=== PATIENT | female | born 1965 | race American Indian/Alaskan Native ===

== ENCOUNTER 2017-06-24 16:07 | Emergency (ER) | payer SELFPAY ==
[2017-06-24 17:36] VITALS: BP 162/115; PULSE 65; RESP 19; TEMP 98.3
--- NOTE | 2017-06-24 17:36 | C.PDOC ---
History Of Present Illness 52 year old female presents to the ED requesting heroin detox. Patient states she last used 2 bags at 1100 today. Patient denies alcohol or any other substance abuse. She has no other complaints at this time. Time Seen by Provider: 06/24/17 17:23 Chief Complaint (Nursing): Substance Abuse History Per: Patient History/Exam Limitations: no limitations Onset/Duration Of Symptoms: Hrs Current Symptoms Are (Timing): Still Present Suicide/Self Injury Attempted (Context): None Modifying Factor(s): Narcotics (heroin) Associated Symptoms: denies: Suicidal Thoughts, Suicidal Plan Involuntary Hold By: None Recent travel outside of the [place]: No Additional History Per: Patient Past Medical History Reviewed: Historical Data, Nursing Documentation, Vital Signs Vital Signs: Last Vital Signs Temp 98.3 F 06/24/17 17:25 Pulse 65 06/24/17 17:25 Resp 19 06/24/17 17:25 BP 162/115 H 06/24/17 17:25 Pulse Ox 98 06/24/17 17:58 - Medical History PMH: Asthma, HTN Surgical History: No Surg Hx Family History: States: Unknown Family Hx - Social History Hx Alcohol Use: No Hx Substance Use: Yes - Immunization History Hx Tetanus Toxoid Vaccination: No Hx Influenza Vaccination: No Hx Pneumococcal Vaccination: No Review Of Systems Psych: Positive for: Other (heroin detox ) Physical Exam - Physical Exam Appears: Non-toxic, No Acute Distress Skin: Normal Color, Warm, Dry Head: Atraumatic, Normacephalic Eye(s): bilateral: Normal Inspection Oral Mucosa: Moist Neck: Supple Chest: Symmetrical, No Deformity, No Tenderness Cardiovascular: Rhythm Regular, No Murmur Respiratory: Normal Breath Sounds, No Rales, No Rhonchi, No Wheezing Extremity: Normal ROM, Capillary Refill (less than 2 seconds ) Neurological/Psych: Oriented x3, Normal Speech, Normal Cognition ED Course And Treatment O2 Sat by Pulse Oximetry: 98 (on RA) Pulse Ox Interpretation: Normal Medical Decision Making Medical Decision Making: Progress: Patient is informed about the unavailability of detox beds at this time. Advised to call to inquire about detox beds and/or return to the ED if symptoms persist or worsen. Disposition - Disposition Referrals: [facility] [Outside] [facility] [Outside] Disposition: HOME/ ROUTINE Disposition Time: 17:25 Condition: STABLE Additional Instructions: please call for detox beds. return to er with worsening symptoms or concerns. Instructions: Drug Abuse and Drug Addiction (DC) Forms: [facility] (Chilean) - Clinical Impression Clinical Impression: Drug abuse - Scribe Statement The provider has reviewed the documentation as recorded by the Scribe (Christine Burrows) Provider Attestation: All medical record entries made by the Scribe were at my direction and personally dictated by me. I have reviewed the chart and agree that the record accurately reflects my personal performance of the history, physical exam, medical decision making, and the department course for this patient. I have also personally directed, reviewed, and agree with the discharge instructions and disposition.
[2017-06-24 17:37] VITALS: O2SAT 98
== END 2017-06-24 17:40 | disposition home or self-care (01) ==
LOC: C.ER 16:07
DX: F11.10 Opioid abuse, uncomplicated (principal)

== ENCOUNTER 2017-07-01 11:05 | Inpatient (IN) | payer MEDICAID, OTHER ==
[2017-07-01 13:04] LABS: BASO # 0.1 K/uL (0.0-0.2); HEMOGLOBIN 12.3 g/dL (11.0-16.0); MEAN CORPUSCULAR HEMOGLOBIN 27.3 pg (27.0-31.0); NEUT # 2.8 K/uL (1.8-7.0); WHITE BLOOD COUNT 5.6 K/uL (4.8-10.8)
[2017-07-01 13:11] LABS: BASO % 1.8 % (0.0-2.0); EOS # 0.1 K/uL (0.0-0.7); EOS % 2.6 % (0.0-4.0); LYMPH # 1.9 K/uL (1.0-4.3); LYMPH % 34.5 % (20.0-40.0); MEAN CELL VOLUME 81.3 fL (81.0-99.0); MEAN CORPUSCULAR HGB CONC 33.6 g/dL (33.0-37.0); MEAN PLATELET VOLUME 8.5 fL (7.2-11.7); MONO # 0.6 K/uL (0.0-0.8); MONO % 10.1 % (0.0-10.0); NRBC % 0.3 % (0.0-2.0); RBC 4.5 Mil/uL (3.80-5.20); RED CELL DISTRIBUTION WIDTH 17.8 % (11.5-14.5)
[2017-07-01 13:13] LABS: ALB/GLOB RATIO 0.9 (1.0-2.1); ALBUMIN 3.8 g/dL (3.5-5.0); ALT/SGPT 9 U/L (9-52); AST/SGOT 26 U/L (14-36); BLOOD UREA NITROGEN 15 mg/dL (7-17); CALCIUM 8.8 mg/dl (8.6-10.4); GFR AFRICAN-AMERICAN > 60; GFR NON-AFRICAN AMERICAN 59
--- NOTE | 2017-07-01 13:54 | C.PDOC ---
History Of Present Illness 52 year old female presents to the ED requesting heroin detox. Patient admits to intranasal heroin use and states her last use was this morning. Patient denies suicidal/homicidal ideation, hallucinations, and has no other complaints at this time. Time Seen by Provider: 07/01/17 11:31 Chief Complaint (Nursing): Substance Abuse History Per: Patient History/Exam Limitations: no limitations Onset/Duration Of Symptoms: Hrs Current Symptoms Are (Timing): Still Present Suicide/Self Injury Attempted (Context): None Modifying Factor(s): Narcotics (heroin) Associated Symptoms: denies: Suicidal Thoughts, Suicidal Plan Involuntary Hold By: None Recent travel outside of the [place]: No Additional History Per: Patient Past Medical History Reviewed: Historical Data, Nursing Documentation, Vital Signs Vital Signs: Last Vital Signs Temp 97.8 F 07/02/17 06:55 Pulse 71 07/02/17 06:55 Resp 18 07/02/17 06:55 BP 163/112 H 07/02/17 06:55 Pulse Ox 98 07/02/17 06:55 - Medical History PMH: Asthma, HTN Denies: Diabetes, Hepatitis, HIV, Seizures, Sexually Transmitted Disease Surgical History: No Surg Hx Family History: States: Unknown Family Hx - Social History Hx Alcohol Use: No Hx Substance Use: Yes - Immunization History Hx Tetanus Toxoid Vaccination: No Hx Influenza Vaccination: No Hx Pneumococcal Vaccination: No Review Of Systems Psych: Positive for: Other (substance abuse ). Negative for: Suicidal ideation Physical Exam - Physical Exam Appears: Non-toxic, No Acute Distress Skin: Normal Color, Warm, Dry Head: Atraumatic, Normacephalic Eye(s): bilateral: Normal Inspection Oral Mucosa: Moist Neck: Supple Chest: Symmetrical, No Deformity, No Tenderness Cardiovascular: Rhythm Regular, No Murmur Respiratory: Normal Breath Sounds, No Rales, No Rhonchi, No Wheezing Extremity: Normal ROM, Capillary Refill (less than 2 seconds ) Neurological/Psych: Oriented x3, Normal Speech, Normal Cognition Gait: Steady ED Course And Treatment - Laboratory Results Result Diagrams: 07/01/17 12:54 07/01/17 12:54 O2 Sat by Pulse Oximetry: 97 (on RA) Pulse Ox Interpretation: Normal Medical Decision Making Medical Decision Making: Assessment: substance abuse Progress: Bloodwork and UA ordered and reviewed. Patient was admitted for detox under Dr. Andino's service for opiate abuse. Disposition Discussed With : Idalmis Andino Doctor Will See Patient In The: Hospital Counseled Patient/Family Regarding: Studies Performed, Diagnosis - Disposition Disposition: HOSPITALIZED Disposition Time: 15:24 Condition: FAIR - Clinical Impression Clinical Impression: Drug abuse - Scribe Statement The provider has reviewed the documentation as recorded by the Scribe (Christine Burrows) Provider Attestation: All medical record entries made by the Scribe were at my direction and personally dictated by me. I have reviewed the chart and agree that the record accurately reflects my personal performance of the history, physical exam, medical decision making, and the department course for this patient. I have also personally directed, reviewed, and agree with the discharge instructions and disposition.
[2017-07-01 14:21] LABS: SQUAMOUS EPITHIAL 5 /hpf (0-5); URINE BILIRUBIN NEGATIVE (NEGATIVE); URINE CLARITY Hazy (Clear); URINE COLOR Yellow (YELLOW); URINE GLUCOSE (UA) NORMAL (Normal); URINE LEUKOCYTE ESTERASE NEG Leu/uL (Negative); URINE PROTEIN NEGATIVE (NEGATIVE); URINE UROBILINOGEN NORMAL mg/dL (0.2-1.0)
[2017-07-01 14:38] LABS: URINE BLOOD 2+ (NEGATIVE)
[2017-07-01 14:50] LABS: BARBITURATES, UR NEGATIVE (NEGATIVE); BENZODIAZEPINES, UR NEGATIVE (NEGATIVE); PHENCYCLIDINE, UR NEGATIVE (NEGATIVE)
[2017-07-01 14:56] LABS: OPIATES, UR POSITIVE (NEGATIVE)
--- NOTE | 2017-07-01 15:58 | PCM.BM ---
<Emmett Vieira - Last Filed: 07/01/17 15:56> Treatment Plan Problems - Problems identified on initial assessmt potential for poiate withdrawal Date Initiated: 07/01/17 Time Initiated: 15:56 Assessment reference: NA Status: Active Treatment assets and liabiliti Patient Assests: cooperative, ADL independent, cognitively intact Patient Liabilities: substance abuse - Milieu Protocol Maintain good personal hygiene: daily Encourage regular showers, daily Remind patient to perform daily oral care, daily Assist patient to perform ADL's Conduct patient checks and document Observation sheet: Q15 minutes Maintain personal safety: daily Educate patient to report safety concerns to staff, every shift Monitor environment for contraband/sharps Medication safety: Monitor for expected outcome, potential side effects: daily, Assess barriers to learning: daily, Assess readiness for medication education: daily <Jackie Zavala - Last Filed: 07/02/17 13:25> Family Contact Family involvement: Family/SO is involved - Goals for Treatment Patient goals for treatment: COMPLETE DETOX AND TRANSITION TO MMT. Discharge/Continuing Care - Education Needs Education Needs: Patient Medication, Patient Diagnosis/Disease Process, Patient Coping Skills, Patient Anger Management skills, Patient Placement options, Patient Community resources - Discharge Discharge Criteria: No longer exhibiting s/s of withdrawal, Reduction of target symptoms Discharge to:: Home - Treatment Team Participation Patient/Family/SO Statement: 07/02/17 13:27 "I WANNA GO ON A METHADONE CLINIC AFTER THIS..." Discussed with Family/SO: No Was Patient/Family/SO present at Treatment Team Meeting: Yes <Idalmis Andino - Last Filed: 07/03/17 01:25> - Diagnosis (1) Opioid use disorder, severe, dependence Status: Acute Interventions: 07/03/17 01:25 * Assess 7x/week regarding severity of withdrawal * Educate regarding risks, benefits, side effects and alternatives of medications * Use Motivational Interviewing for abstinence * Use CBT for relapse prevention * Medication management for withdrawal symptoms * Encourage medication assisted treatment *
[2017-07-01] MEDS ORDERED: Aluminum Hydroxide/Magnesium Hydroxide Susp (30 mL) PO PRN (18:39)
--- NOTE | 2017-07-02 14:14 | PCM.PSYCH ---
Initial Psychiatric Evaluation - Initial Psychiatric Evaluation Type of Admission: Voluntary Legal Status: Capacity Chief Complaint (in patient's own words): "I need help." History of Present Illness and Precipitating Events: Patient is seen, chart reviewed, case discussed. This is a 52 year old AA female, who is unemployed and lives with sister, who presented to ED for opiod use detox. Patient was referred to the program by her friend. Patient states she wants to quit because "I want to see my grandkids grow up." Patient snorts 7 bags of heroin per day. Patient has been using since she was 18 years old. Patient stated she was in treatment once at [facility] and [facility] but then relapsed. Patient states she has a history of alcohol use but quit drinking last year. Patient admits to smoking 2 cigarettes per day. Patient denies other illicit drug use, including painkillers, xanax, and marijuana. medical hx: denies psych hx: denies Family Hx: denies Current Medications: Active Medications Generic Name Dose Route Start Last Admin Trade Name Freq PRN Reason Stop Dose Admin Acetaminophen 650 mg 07/01/17 18:39 Tylenol 325mg Tab PO Q4H PRN Fever greater than 101 F Al Hydrox/Mg Hydrox/Simethicone 30 ml 07/01/17 18:39 Maalox 30 Ml PO TID PRN Indigestion / Heartburn Clonidine HCl 0.1 mg 07/01/17 18:39 07/02/17 06:31 Catapres PO 0.1 mg Q8 PRN Administration COWS Score More or Equal to 5 Loperamide HCl 2 mg 07/01/17 18:39 Imodium PO Q8 PRN Diarrhea Methadone HCl 15 mg 07/02/17 10:00 07/02/17 09:30 Methadone PO 07/06/17 09:59 15 mg Q24H CAROLE Administration Taper Ondansetron HCl 4 mg 07/01/17 18:39 Zofran Tab PO Q8 PRN Nausea/Vomiting Pneumococcal Polyvalent Vaccine 0.5 ml 07/04/17 10:00 Pneumovax 23 Vaccine IM 07/04/17 10:01 .ONCE ONE Pseudoephedrine HCl 60 mg 07/01/17 18:39 Sudafed Tab PO QID PRN Nasal/Sinus Congestion Past Psychiatric History - Past Psychiatric History Previous Treatment History: None History of ETOH/Drug Use: Opiod Use Disorder Pertinent Medical Hx (Current Medical&Sleep Prob, Allergies): Allergies Allergy/AdvReac Type Severity Reaction Status Date / Time Penicillins Allergy SWELLING Verified 07/01/17 11:16 Unobtainable 06/24/17 Review of Systems - Review of Systems All systems: reviewed and no additional remarkable complaints except - Psychiatric Psychiatric: absent: Depression, Hallucinations, Homicidal Ideation, Suicidal Ideation Mental Status Examination - Personal Presentation Personal Presentation: Looks older than stated age - Affect Affect: Broad - Motor Activity Motor Activity: Calm - Reliability in Providing Information Reliability in Providing Information: Fair - Speech Speech: Organized - Mood Mood: Neutral - Formal Thought Process Formal Thought Process: No Impairment - Obsessions/Compulsions Obsessions: No Compulsions: No - Cognitive Functions Orientation: Person, Place, Situation, Time Sensorium: Alert - Risk Risk: Withdrawal - Strength & Assets Inventory Strength & Assets Inventory: Family support DSM 5 DX - DSM 5 DSM 5 Diagnosis: Opiod Use Disorder, severe Opiod Withdrawal - Recommended/Plan of Treatment Treatment Recommendations and Plan of Treatment: Methadone detox Gabapentin for augmentation if needed As needed medications All risks, benefits and alternatives of the meds discussed, and the pt agreed and understood. Attend groups and activities Supportive therapy and psychoeducation CT for abstinence CBT for relapse prevention Encourage MAT Refer to rehab or IOP, and self-help groups Smoking cessation with CT Nicotine patch if needed 34 min Projected ELOS: 4-5 days - Smoking Cessation Smoking Cessation Initiated: Yes
--- NOTE | 2017-07-03 10:25 | PCM.PYCHPN ---
Psychiatric Progress Note - Psychiatric Progress Note Patient seen today, length of contact: 15 min Patient Chief Complaint: I am still withdrawing. Problems Identified/Issues Discussed: The pt is seen, chart reviewed, case discussed with staff. Patient states she is eating well. She states she is still having some trouble sleeping. Support given, CBT and HI used briefly No new symptoms reported, improving slowly and needs more time No SEs from medications, risks discussed. After care discussed Medication Change: Yes Medical Record Reviewed: Yes Mental Status Examination - Cognitive Function Orientation: Person, Place, Situation, Time Memory: Intact Attention: WNL Concentration: WNL Association: WNL Fund of Knowledge: WNL - Mood Mood: Neutral - Affect Affect: Broad - Speech Speech: Soft - Formal Thought Process Formal Thought Process: No Impairment - Suicidal Ideation Suicidal Ideation: No - Homicidal Ideation Homicidal Ideation: No Goal/Treatment Plan - Goal/Treatment Plan Need for Continued Stay: Severe depression anxiety, Severe functional impairment Progress Toward Problem(s) and Goals/Treatment Plan: Opioid Use Disorder, severe Opioid Withdrawal Methadone detox Gabapentin for augmentation if needed As needed medications All risks, benefits and alternatives of the meds discussed, and the pt agreed and understood. Attend groups and activities Supportive therapy and psychoeducation HI for abstinence CBT for relapse prevention Encourage MAT Refer to rehab or IOP, and self-help groups Smoking cessation with HI Nicotine patch if needed
[2017-07-04 09:43] VITALS: RESP 20; TEMP 97.4; O2SAT 98
[2017-07-04] MEDS ORDERED: Pneumococcal 23-Valent Vaccine IM ONE (10:00)
--- NOTE | 2017-07-04 10:19 | PCM.PYCHDC ---
Mental Status Examination - Mental Status Examination Orientation: Person, Place, Situation, Time Memory: Intact Mood: Anxious Affect: Constricted Speech: Appropriate Attention: WNL Concentration: Poor Association: WNL Fund of Knowledge: WNL Formal Thought Process: No Impairment Suicidal Ideation: No Current Homicidal Ideation?: No Discharge Summary - Discharge Note Reason for Hospitalization: Opioid detox Consultations:: List each consultation separately and include: 1. Reason for request. 2. Findings. 3. Follow-up Summary of Hospital Course include:: 1. Description of specific treatment plan utilized for patients during their course of treatmen. 2. Summarize the time- course for resolution of acute symptoms and/or regressed behaviors. 3. Describe issues identified and worked on during hospitalization. 4. Describe medication utilized. 5. Describe medical problems identified and treated. 6. Reassessment of suicide risk Summary of Hospital Course: Patient is seen, chart reviewed, case discussed. On admission: This is a 52 year old AA female, who is unemployed and lives with sister, who presented to ED for opiod use detox. Patient was referred to the program by her friend. Patient states she wants to quit because "I want to see my grand kids grow up." Patient snorts 7 bags of heroin per day. Patient has been using since she was 18 years old. Patient stated she was in treatment once at [facility] and [facility] but then relapsed. Patient states she has a history of alcohol use but quit drinking last year. Patient admits to smoking 2 cigarettes per day. Patient denies other illicit drug use, including painkillers, xanax, and marijuana. medical hx: denies psych hx: denies Family Hx: denies Hospital course: The pt was admitted and started on treatment with psychotherapy, support, psychoeducation and medications. LA and CBT used. The pt attended groups and activities, as well as milieu therapy. All the risks and benefits of medications are discussed and the patient understood and agreed. The pt improved with the treatments provided. After care discussed with the patient. [facility] Methadone program - Diagnosis (1) Opioid use disorder, severe, dependence Status: Acute - Final Diagnosis (DSM 5) Condition upon Discharge: IMPROVED Disposition: HOME/ ROUTINE Follow-up Treatment Plan: No meds - did not want Follow after care plan as discussed. Use relapse prevention skills Return to ER or call 911 if suicidal, homicidal or symptoms relapse. Stay away from stress, alcohol and drugs. See primary doctor regularly and get labs.
[2017-07-04 11:29] VITALS: BP 131/83; PULSE 71
== END 2017-07-04 12:36 | disposition home or self-care (01) | DRG 895 ==
LOC: C.ER 11:05 → C.7D 15:23
PROVIDERS: ADMIT Psychiatry & Neurology Psychiatry; ATTEND Psychiatry & Neurology Psychiatry
PROC: HZ2ZZZZ Detoxification Services for Substance Abuse Treatment (ICD-10-PCS; principal; 2017-07-01)
PROC: HZ52ZZZ Individual Psychotherapy for Substance Abuse Treatment, Cognitive-Behavioral (ICD-10-PCS; 2017-07-01)
PROC: HZ59ZZZ Individual Psychotherapy for Substance Abuse Treatment, Supportive (ICD-10-PCS; 2017-07-01)
PROC: HZ56ZZZ Individual Psychotherapy for Substance Abuse Treatment, Psychoeducation (ICD-10-PCS; 2017-07-01)
PROC: HZ42ZZZ Group Counseling for Substance Abuse Treatment, Cognitive-Behavioral (ICD-10-PCS; 2017-07-01)
PROC: HZ46ZZZ Group Counseling for Substance Abuse Treatment, Psychoeducation (ICD-10-PCS; 2017-07-01)
DX: F11.23 Opioid dependence with withdrawal (principal); F17.210 Nicotine dependence, cigarettes, uncomplicated

== ENCOUNTER 2017-10-30 11:30 | Emergency (ER) | payer MEDICAID, OTHER ==
[2017-10-30 11:58] VITALS: PULSE 70; TEMP 98.4; O2SAT 95
[2017-10-30 12:18] LABS: BASO % 1.2 % (0.0-2.0); EOS # 0.2 K/uL (0.0-0.7); EOS % 4.3 % (0.0-4.0); HEMOGLOBIN 12.2 g/dL (11.0-16.0); LYMPH # 1.2 K/uL (1.0-4.3); LYMPH % 29.4 % (20.0-40.0); MEAN CELL VOLUME 82.4 fL (81.0-99.0); MEAN CORPUSCULAR HGB CONC 33.9 g/dL (33.0-37.0); MEAN PLATELET VOLUME 7.9 fL (7.2-11.7); MONO # 0.4 K/uL (0.0-0.8); MONO % 10.3 % (0.0-10.0); NEUT # 2.2 K/uL (1.8-7.0); NEUT % 54.8 % (50.0-75.0); RBC 4.37 Mil/uL (3.80-5.20); WHITE BLOOD COUNT 4.1 K/uL (4.8-10.8)
[2017-10-30 12:32] LABS: ALB/GLOB RATIO 1.1 (1.0-2.1); ALBUMIN 4.3 g/dL (3.5-5.0); CALCIUM 9.7 mg/dl (8.6-10.4); GFR AFRICAN-AMERICAN > 60; GFR NON-AFRICAN AMERICAN > 60
[2017-10-30 12:33] LABS: ALT/SGPT 58 U/L (9-52); AST/SGOT 47 U/L (14-36); BLOOD UREA NITROGEN 20 mg/dL (7-17)
--- NOTE | 2017-10-30 13:06 | RAD ---
Date of service: 10/30/2017 PROCEDURE: CHEST RADIOGRAPH, 1 VIEW HISTORY: Fall COMPARISON: None available. FINDINGS: LUNGS: The lungs are well inflated and clear. PLEURA: No pneumothorax or pleural fluid seen. CARDIOVASCULAR: Normal. OSSEOUS STRUCTURES: No significant abnormalities. VISUALIZED UPPER ABDOMEN: Normal. OTHER FINDINGS: None. IMPRESSION: No acute findings.
[2017-10-30 13:10] LABS: URINE AMORPHOUS SEDIMENT FEW /ul (<OCC); URINE BILIRUBIN NEGATIVE (NEGATIVE); URINE BLOOD NEGATIVE (NEGATIVE); URINE CLARITY Hazy (Clear); URINE COLOR Yellow (YELLOW); URINE GLUCOSE (UA) NORMAL (Normal); URINE LEUKOCYTE ESTERASE NEG Leu/uL (Negative); URINE PROTEIN NEGATIVE (NEGATIVE); URINE UROBILINOGEN NORMAL mg/dL (0.2-1.0)
--- NOTE | 2017-10-30 13:17 | CT ---
Date of service: 10/30/2017 PROCEDURE: CT HEAD WITHOUT CONTRAST. HISTORY: fall from bed at [place] COMPARISON: None available. TECHNIQUE: Axial computed tomography images were obtained through the head/brain without intravenous contrast. Radiation dose: Total exam DLP = 758.37 mGy-cm. This CT exam was performed using one or more of the following dose reduction techniques: Automated exposure control, adjustment of the mA and/or kV according to patient size, and/or use of iterative reconstruction technique. FINDINGS: HEMORRHAGE: No intracranial hemorrhage. BRAIN: There are old lacunar infarctions in the right very frontal white matter, bilateral basal ganglia and posterior limb of the left internal capsule. There are mild chronic microangiopathic changes. There is no mass, mass effect or abnormal extra-axial fluid collection. VENTRICLES: There is mild age-related global parenchymal volume loss and proportionate enlargement of the ventricles and cortical sulci. CALVARIUM: The skull base and calvarium are normal no calvarial fracture. No extracranial soft tissue swelling. PARANASAL SINUSES: Predominantly clear. MASTOID AIR CELLS: Predominantly clear. OTHER FINDINGS: None. IMPRESSION: No acute intracranial abnormality. Old lacunar infarctions as described above. Mild chronic microangiopathic changes and mild age-related global parenchymal volume loss.
--- NOTE | 2017-10-30 13:42 | C.PDOC ---
History Of Present Illness 52yo female, sent to [facility] for evaluation as she has fallen down 3 times since 10/17. Patient is currently in [facility] for treatment as she had a CVA and currently has right hemiparesis. Patient is non-verbal so a full HPI and ROS is limited. She is able to point to her left hip and is complaining of pain other. Otherwise, she offers no additional medical complaints. - HPI Time Seen by Provider: 10/30/17 11:56 Chief Complaint (Nursing): Trauma History Per: Patient History/Exam Limitations: clinical condition (nonverbal) Onset/Duration Of Symptoms: Days Location Of Injury: Left: Hip Additional History Per: Patient Past Medical History Reviewed: Historical Data, Nursing Documentation, Vital Signs Vital Signs: Last Vital Signs Temp 98.4 F 10/30/17 11:39 Pulse 70 10/30/17 13:50 Resp 19 10/30/17 13:50 BP 101/72 10/30/17 13:50 Pulse Ox 95 10/30/17 18:14 - Medical History PMH: Asthma, CVA (w/ right sided hemiparesis), HTN Denies: Diabetes, Hepatitis, HIV, Seizures, Sexually Transmitted Disease Surgical History: No Surg Hx - [facility] DETOXIFICATION SERVICES FOR SUBSTANCE ABUSE TREATMENT (07/01/17) GROUP SOLUTIONS ARCHITECT FOR SUBSTANCE ABUSE TREATMENT, PSYCHOEDUCATION (07/01/17) GROUP SOLUTIONS ARCHITECT FOR SUBSTANCE ABUSE, COGNITIVE BEHAVIORAL (07/01/17) INDIV PSYCHOTHERAPY FOR SUBSTANCE ABUSE TREATMENT, SUPPORT (07/01/17) INDIV PSYCHOTHERAPY FOR SUBSTANCE ABUSE, COGNITIV BEHAVIORAL (07/01/17) INDIV PSYCHOTHERAPY FOR SUBSTANCE ABUSE, PSYCHOEDUCATION (07/01/17) Family History: States: No Known Family Hx, Unknown Family Hx - Social History Hx Alcohol Use: No Hx Substance Use: Yes - Immunization History Hx Tetanus Toxoid Vaccination: No Hx Influenza Vaccination: No Hx Pneumococcal Vaccination: No Review Of Systems Review Of Systems: ROS cannot be obtained secondary to pt's inabilty to answer questions. (patient is non-verbal) Musculoskeletal: Positive for: Other (left hip pain s/p fall) Physical Exam - Physical Exam Appears: Non-toxic, No Acute Distress, Other (feeding tube in place) Skin: Normal Color, Warm, Dry, No Rash, Other (no lesions) Head: Atraumatic, Normacephalic Eye(s): bilateral: Normal Inspection, PERRL, EOMI Oral Mucosa: Moist Neck: Normal ROM, Supple Chest: Symmetrical, No Tenderness, No Ecchymosis Cardiovascular: Rhythm Regular Respiratory: Normal Breath Sounds Gastrointestinal/Abdominal: Soft, No Tenderness, No Mass, No Guarding, No Rebound Back: Normal Inspection, No CVA Tenderness, No Vertebral Tenderness, No Paraspinal Tenderness Extremity: Normal ROM (normal ROM of left upper and lower extremities. Unable to assess right upper and lower extremities due to hemiparesis.), No Pedal Edema , No Calf Tenderness, Capillary Refill (< 2 seconds), No Swelling Extremity: Right: Hips Non-Tender Pulses: Left Dorsalis Pedis: Normal, Right Dorsalis Pedis: Normal Neurological/Psych: No Normal Motor, No Normal Sensation ED Course And Treatment - Laboratory Results Result Diagrams: 10/30/17 12:15 10/30/17 12:15 O2 Sat by Pulse Oximetry: 95 (RA) Pulse Ox Interpretation: Normal - Other Rad CXR X-Ray: Read By Radiologist Interpretation: FINDINGS: LUNGS: The lungs are well inflated and clear. PLEURA: No pneumothorax or pleural fluid seen. CARDIOVASCULAR: Normal. OSSEOUS STRUCTURES: No significant abnormalities. VISUALIZED UPPER ABDOMEN: Normal. OTHER FINDINGS: None. IMPRESSION: No acute findings. XR Hips X-Ray: Read By Radiologist Interpretation: FINDINGS: BONES: The pelvic ring is intact. There is no acute fracture or bone destruction. Bone alignment and mineralization are normal. JOINTS: The right hip joint space is preserved. There is mild degenerative osteoarthrosis in the left hip joint. SOFT TISSUES: Normal. OTHER FINDINGS: There is large amount of stool in the visualized colon and rectum consistent with constipation. IMPRESSION: No acute displaced fracture or dislocation. - CT Scan/US CT Head Other Rad Studies (CT/US): Radiology Report Reviewed CT/US Interpretation: FINDINGS: HEMORRHAGE: No intracranial hemorrhage. BRAIN : There are old lacunar infarctions in the right very frontal white matter, bilateral basal ganglia and posterior limb of the left internal capsule. There are mild chronic microangiopathic changes. There is no mass, mass effect or abnormal extra-axial fluid collection. VENTRICLES: There is mild age-related global parenchymal volume loss and proportionate enlargement of the ventricles and cortical sulci. CALVARIUM: The skull base and calvarium are normal no calvarial fracture. No extracranial soft tissue swelling. PARANASAL SINUSES: Predominantly clear. MASTOID AIR CELLS: Predominantly clear. OTHER FINDINGS: None. IMPRESSION: No acute intracranial abnormality. Old lacunar infarctions as described above. Mild chronic microangiopathic changes and mild age-related global parenchymal volume loss. CT C-Spine Other Rad Studies (CT/US): Radiology Report Reviewed CT/US Interpretation: FINDINGS: VERTEBRAE: There is normal alignment of the cervical vertebral bodies. There is reversal of normal cervical lordosis. There is no acute fracture or traumatic anterior listhesis. The craniocervical junction is normal. The atlantoaxial joint is normal. DISCS/SPINAL CANAL/ NEURAL FORAMINA: There is mild multilevel degenerative disc disease due to combination of disc osteophyte complexes, uncovertebral joint hypertrophy and multilevel facet arthropathy, worse at C5-6 with asymmetric left uncovertebral joint hypertrophy and mild left neural foraminal narrowing. No central spinal canal stenosis. PARASPINAL SOFT TISSUES: The paraspinous soft tissues are normal. OTHER FINDINGS: Centrilobular and paraseptal emphysema in the visualized lungs. IMPRESSION: No acute fracture or traumatic anterior listhesis. Progress Note: Labs, UA, XR hips and CT head, CT C-Spine ordered. 1420 Labs reviewed and show no acute changes. Case discussed with Dr. Lissette Burrows and he is agreeable with plan for discharge patient from ED to nursing. home. Disposition - Disposition Disposition: TRANSF TO SNF Disposition Time: 14:27 Condition: FAIR Forms: [facility] (Maltese) - Clinical Impression Clinical Impression: Fall from bed, Contusion of hip, left - PA / STRUCTURES TECHNICIAN / Resident Statement MD/DO has reviewed & agrees with the documentation as recorded. - Scribe Statement The provider has reviewed the documentation as recorded by the Stephanie Simms Provider Attestation: All medical record entries made by the Stephanie were at my direction and personally dictated by me. I have reviewed the chart and agree that the record accurately reflects my personal performance of the history, physical exam, medical decision making, and the department course for this patient. I have also personally directed, reviewed, and agree with the discharge instructions and disposition.
--- NOTE | 2017-10-30 13:57 | CT ---
Date of service: 10/30/2017 PROCEDURE: CT Cervical Spine without contrast HISTORY: fall [place] bed at [place] COMPARISON: None available. TECHNIQUE: Axial computed tomography images were obtained of the cervical spine without the use of intravenous contrast. Coronal and sagittal reformatted images were created and reviewed. Radiation dose: Total exam DLP = 320.21 mGy-cm. This CT exam was performed using one or more of the following dose reduction techniques: Automated exposure control, adjustment of the mA and/or kV according to patient size, and/or use of iterative reconstruction technique. FINDINGS: VERTEBRAE: There is normal alignment of the cervical vertebral bodies. There is reversal of normal cervical lordosis. There is no acute fracture or traumatic anterior listhesis. The craniocervical junction is normal. The atlantoaxial joint is normal DISCS/SPINAL CANAL/NEURAL FORAMINA: There is mild multilevel degenerative disc disease due to combination of disc osteophyte complexes, uncovertebral joint hypertrophy and multilevel facet arthropathy, worse at C5-6 with asymmetric left uncovertebral joint hypertrophy and mild left neural foraminal narrowing. No central spinal canal stenosis. PARASPINAL SOFT TISSUES: The paraspinous soft tissues are normal. OTHER FINDINGS: Centrilobular and paraseptal emphysema in the visualized lungs. IMPRESSION: No acute fracture or traumatic anterior listhesis.
[2017-10-30 13:58] VITALS: BP 101/72; RESP 19
--- NOTE | 2017-10-30 14:02 | RAD ---
PROCEDURE: Left Hip X-ray Radiographs. HISTORY: Fall from bed at [place] COMPARISON: None. FINDINGS: BONES: The pelvic ring is intact. There is no acute fracture or bone destruction. Bone alignment and mineralization are normal. JOINTS: The right hip joint space is preserved. There is mild degenerative osteoarthrosis in the left hip joint. SOFT TISSUES: Normal. OTHER FINDINGS: There is large amount of stool in the visualized colon and rectum consistent with constipation. IMPRESSION: No acute displaced fracture or dislocation.
== END 2017-10-30 17:27 ==
LOC: C.ER 11:30
DX: S70.02XA Contusion of left hip, initial encounter (principal); W19.XXXA Unspecified fall, initial encounter; Y92.129 Unspecified place in nursing home as the place of occurrence of the external cause

== ENCOUNTER 2018-05-27 09:56 | Outpatient (CLI) | payer OTHER | END 2018-05-27 09:57 | disposition home or self-care (01) | LOC: C.RADH 09:56 | DX: I69.391 Dysphagia following cerebral infarction (principal); R13.10 Dysphagia, unspecified ==